=== PATIENT | female | born 1970 | race Caucasian/White ===

== ENCOUNTER 2024-04-16 22:04 | Emergency (ER) | payer OTHER ==
[2024-04-16 22:13] VITALS: BP 122/90; PULSE 103; RESP 18; TEMP 98.8; BMI 26.6
[2024-04-16] MEDS ORDERED: NAPROXEN 500 MG TABLET ONE (22:32)
[2024-04-16] MEDS: NAPROXEN 500 MG TABLET PO ONE (22:36)
== END 2024-04-16 23:46 | disposition home or self-care (01) ==
LOC: FER 22:04
PROC: 0HQ1XZZ Repair Face Skin, External Approach (ICD-10-PCS; principal; 2024-04-16)
DX: S01.112A Laceration without foreign body of left eyelid and periocular area, initial encounter (principal); M54.2 Cervicalgia; W10.9XXA Fall (on) (from) unspecified stairs and steps, initial encounter; W01.198A Fall on same level from slipping, tripping and stumbling with subsequent striking against other object, initial encounter
CPT/HCPCS: 72050-TC-FY; 99283-25

== ENCOUNTER 2024-04-24 15:23 | Emergency (ER) | payer OTHER ==
[2024-04-24 15:31] VITALS: BP 132/81; PULSE 78; RESP 18; TEMP 98; BMI 27.1
== END 2024-04-24 15:44 | disposition home or self-care (01) ==
LOC: FER 15:23
DX: Z48.02 Encounter for removal of sutures (principal)
CPT/HCPCS: 99281-25